=== PATIENT | female | born 1945 | race Caucasian/White ===

== ENCOUNTER 2019-02-01 04:53 | Inpatient (IN) | payer MEDICARE ==
[~2019-02-01] VITALS: Ht 157.5 cm; Wt 68.4 kg
[2019-02-01] MEDS ORDERED: ONDANSETRON HCL 4 MG/2 ML VIAL ONE ×2 (05:00→09:06)
[2019-02-01] MEDS ORDERED: MORPHINE SULFATE 4 MG/1ML SYG ONE ×2 (05:00→06:34)
[2019-02-01 05:11] LABS: BASOPHILS % (AUTO) 0.6 % (0.0-5.0); EOSINOPHILS % (AUTO) 1.4 % (0.0-8.0); HEMATOCRIT 35.5 % (36-48); LYMPHOCYTES % (AUTO) 28.3 % (21.0-51.0); MEAN CORPUSCULAR HEMOGLOBIN 34.4 pg (27.0-33.0); MEAN CORPUSCULAR HGB CONC 34.7 g/dL (32.0-36.0); MEAN CORPUSCULAR VOLUME 99.1 fL (79-99); MONOCYTES % (AUTO) 10.3 % (3.0-13.0); NEUTROPHILS % (AUTO) 59.4 % (40.0-77.0); PLATELET COUNT (AUTO) 150 K/uL (130-400); RED BLOOD CELL COUNT(AUTO) 3.58 MIL/uL (4.00-5.50); WHITE BLOOD COUNT (AUTO) 4.6 K/uL (4.8-10.8)
[2019-02-01 05:19] LABS: CREATININE 0.9 mg/dL (0.5-1.5); POTASSIUM 3.1 mmol/L (3.5-5.1)
[2019-02-01 05:24] LABS: ALBUMIN 3.1 g/dL (3.5-5.0); BILIRUBIN,TOTAL 0.4 mg/dL (0.2-1.0); TOTAL PROTEIN, SERUM 5.8 g/dL (6.0-8.3)
[2019-02-01] MEDS ORDERED: IOHEXOL 350 MG/ML 100ML INFUS..BTL IV ONE (05:48)
[2019-02-01] MEDS ORDERED: POTASSIUM CHLORIDE 20 MEQ ERTAB PO ONE (07:45)
[2019-02-01] MEDS ORDERED: DEXTROSE 5 %-0.45 % NACL 1,000 ML IV ONE (07:56)
[2019-02-01] MEDS ORDERED: MORPHINE SULFATE 2 MG/ML 1ML SYG ONE (09:06)
--- NOTE | 2019-02-01 09:38 | NUR ---
CRESENCIO Solorzano met with pt's Félix [phone] and daughter Kacie Bob [phone] while pt down for testing. Pt and in town visiting daughter for 2 weeks when pt became ill. Pt is independent of ADLS, no DME of in home care services. Plan is for pt to return to daughter's until scheduled return home next week. Addendum: 02/01/19 at 0940 by MARI WHITNEY Amended: Links added.
[2019-02-01 09:44] LABS: APPEARANCE,URINE Clear (CLEAR); BILIRUBIN,URINE Negative (NEGATIVE); COLOR,URINE Yellow (YELLOW); GLUCOSE, URINE (UA) Negative (NEGATIVE); KETONES,URINE Negative (NEGATIVE); LEUKOCYTE ESTERASE ,URINE Negative (NEGATIVE); NITRATE,URINE Negative (NEGATIVE); OCCULT BLOOD,URINE Negative (NEGATIVE); PROTEIN,URINE Negative (NEGATIVE)
[2019-02-01] MEDS: D5W-1/2 NS/20MEQ KCL 1,000 ML IV SCH ×2 (10:39→23:59)
[2019-02-01] MEDS ORDERED: MORPHINE SULFATE 2 MG/ML 1ML SYG IV PRN (10:45)
[2019-02-01 14:57] LABS: CREATINE KINASE, TOTAL 79 U/L (21-232); MYOGLOBIN 49 ng/mL (10-92); TROPONIN I < 0.04 ng/mL (0.00-0.06)
[2019-02-01] MEDS ORDERED: ACETAMINOPHEN 325 MG TAB ONE ×2 (15:38→15:41)
[2019-02-01] MEDS ORDERED: SODIUM CHLORIDE 0.9% 1000ML 1,000 ML IV SCH (19:30)
--- NOTE | 2019-02-01 19:40 | NUR ---
ASSESSMENT PATIENT TRANSFERRED FROM [place] [id number]. DX: SYNCOPE/DEHYDRATION. PATIENT DENIES PAIN AND SHORTNESS OF BREATH. ON ROOM AIR. RESPIRATIONS UNLABORED. SINUS RHYTHM HR 80'S. PATIENT COMPLAINS OF DIZZINESS AND DOUBLE VISION SINCE YESTERDAY. WILL KEEP BEDREST. SEE DOCUMENTATION FOR FULL ASSESSMENT. CALL LIGHT WITHIN REACH. INSTRUCTED PATIENT TO CALL IF ASSISTANCE IS NEEDED.
[2019-02-01 20:05] VITALS: BP 96/51
[2019-02-01] MEDS ORDERED: SODIUM CHLORIDE 0.9% 250 ML IV ONE (20:45)
--- NOTE | 2019-02-01 21:00 | NUR ---
CAROTID DOPPLERS IN PROGRESS
[2019-02-01] MEDS: ZOSYN 3.375GM+NS 50ML 50 ML IV SCH ×2 (21:15→21:31)
[2019-02-01] MEDS: FAMOTIDINE/PF 20 MG/2 ML VIAL IV SCH (21:30)
[2019-02-01] MEDS ORDERED: POTASSIUM CHLORIDE 20 MEQ ERTAB PO PRN (23:00)
[2019-02-01] MEDS ORDERED: POTASSIUM CHLORIDE 10% ELIXIR 20 MEQ/15 ML UDCUP PO PRN (23:00)
[2019-02-01] MEDS ORDERED: SODIUM CHLORIDE 0.9% 500ML 500 ML IV ONE (23:15)
[2019-02-01] MEDS ORDERED: POTASSIUM CHLORIDE 10 MEQ/TAB.SA PO ONE ×2 (23:16)
[2019-02-01 23:56] LABS: CREATINE KINASE, TOTAL 65 U/L (21-232); MYOGLOBIN 61 ng/mL (10-92); TROPONIN I < 0.04 ng/mL (0.00-0.06)
[2019-02-02] VITALS (7 sets, daily range): BP systolic 104–122; BP diastolic 51–67
[2019-02-02] MEDS: ACETAMINOPHEN 325 MG TAB PO PRN (04:03)
[2019-02-02 04:29] LABS: HEMATOCRIT 35.2 % (36-48); MEAN CORPUSCULAR HEMOGLOBIN 34.1 pg (27.0-33.0); MEAN CORPUSCULAR HGB CONC 33.6 g/dL (32.0-36.0); MEAN CORPUSCULAR VOLUME 101.5 fL (79-99); NUCLEATED RED BLOOD CELLS 0.4 % (0.0-0.19); PLATELET COUNT (AUTO) 104 K/uL (130-400); RED BLOOD CELL COUNT(AUTO) 3.47 MIL/uL (4.00-5.50); RED CELL DISTRIBUTION WIDTH 13.3 % (11.0-15.5); WHITE BLOOD COUNT (AUTO) 7.5 K/uL (4.8-10.8)
[2019-02-02 04:35] LABS: CREATININE 0.7 mg/dL (0.5-1.5); POTASSIUM 3.2 mmol/L (3.5-5.1)
[2019-02-02] MEDS ORDERED: POTASSIUM CHLORIDE 10 MEQ/TAB.SA PO ONE ×4 (05:15→06:29)
[2019-02-02] MEDS: ZOSYN 3.375GM+NS 50ML 50 ML IV SCH ×3 (05:18→21:52)
[2019-02-02] MEDS ORDERED: GABA-531 PO ×2 (07:45→07:50)
[2019-02-02] MEDS ORDERED: ASPI-1197 PO (07:45)
[2019-02-02] MEDS ORDERED: ATOR20TA65 PO (07:45)
[2019-02-02] MEDS ORDERED: POTA-79 PO (07:45)
[2019-02-02] MEDS ORDERED: LORA-997 PO (07:47)
[2019-02-02] MEDS: ONDANSETRON HCL 4 MG/2 ML VIAL IV PRN ×2 (09:38→15:12)
[2019-02-02] MEDS: FAMOTIDINE/PF 20 MG/2 ML VIAL IV SCH ×2 (09:38→21:18)
[2019-02-02] MEDS: D5W-1/2 NS/20MEQ KCL 1,000 ML IV SCH (11:34)
[2019-02-02] MEDS: POTASSIUM CHLORIDE 20MEQ/100ML 100 ML IV PRN (21:19)
[2019-02-02] MEDS: LIDOCAINE HCL-MPF 1% 2ML VIAL IVP PRN (21:19)
[2019-02-03] MEDS: D5W-1/2 NS/20MEQ KCL 1,000 ML IV SCH ×2 (01:30→15:09)
[2019-02-03 03:51] VITALS: BP 140/67
[2019-02-03 04:14] LABS: MEAN CORPUSCULAR HEMOGLOBIN 34.5 pg (27.0-33.0); MEAN CORPUSCULAR HGB CONC 34.6 g/dL (32.0-36.0); MEAN CORPUSCULAR VOLUME 99.9 fL (79-99); PLATELET COUNT (AUTO) 112 K/uL (130-400); RED BLOOD CELL COUNT(AUTO) 3.31 MIL/uL (4.00-5.50); RED CELL DISTRIBUTION WIDTH 13.2 % (11.0-15.5); WHITE BLOOD COUNT (AUTO) 7.2 K/uL (4.8-10.8)
[2019-02-03 04:24] LABS: CREATININE 0.7 mg/dL (0.5-1.5); POTASSIUM 3.7 mmol/L (3.5-5.1)
[2019-02-03] MEDS: ZOSYN 3.375GM+NS 50ML 50 ML IV SCH ×3 (05:54→22:33)
[2019-02-03 07:31] VITALS: BP 110/60
[2019-02-03] MEDS: FAMOTIDINE/PF 20 MG/2 ML VIAL IV SCH ×2 (09:12→21:01)
[2019-02-03 11:29] VITALS: BP 129/78
[2019-02-03] MEDS: GABAPENTIN 300 MG CAPSULE PO SCH ×2 (12:25→21:00)
[2019-02-03] MEDS: ONDANSETRON HCL 4 MG/2 ML VIAL IV PRN (15:09)
[2019-02-03] MEDS ORDERED: METRONIDAZOLE 500MG/100ML BAG 100 ML IV SCH (15:30)
[2019-02-03 16:07] VITALS: BP 150/78
[2019-02-03] MEDS ORDERED: PROMETHAZINE HCL 25 MG/ML 1ML AMPULE IM SCH (17:15)
[2019-02-03 19:21] VITALS: BP 133/79
[2019-02-03] MEDS: ATORVASTATIN CALCIUM 20 MG TABLET PO SCH (21:00)
[2019-02-03] MEDS: METRONIDAZOLE 500MG/100ML BAG 100 ML IV SCH (21:01)
[2019-02-03 23:32] VITALS: BP 132/76
[2019-02-04] MEDS: D5W-1/2 NS/20MEQ KCL 1,000 ML IV SCH ×2 (01:28→13:01)
[2019-02-04 03:49] VITALS: BP 142/75
[2019-02-04 04:45] LABS: BASOPHILS % (AUTO) 0.2 % (0.0-5.0); EOSINOPHILS % (AUTO) 0.8 % (0.0-8.0); LYMPHOCYTES % (AUTO) 9.8 % (21.0-51.0); MEAN CORPUSCULAR HEMOGLOBIN 34.3 pg (27.0-33.0); MEAN CORPUSCULAR HGB CONC 34.6 g/dL (32.0-36.0); MONOCYTES % (AUTO) 10.4 % (3.0-13.0); NEUTROPHILS % (AUTO) 78.8 % (40.0-77.0); NUCLEATED RED BLOOD CELLS 0.1 % (0.0-0.19); PLATELET COUNT (AUTO) 158 K/uL (130-400); RED BLOOD CELL COUNT(AUTO) 3.64 MIL/uL (4.00-5.50); RED CELL DISTRIBUTION WIDTH 13.2 % (11.0-15.5); WHITE BLOOD COUNT (AUTO) 6.2 K/uL (4.8-10.8)
[2019-02-04 04:56] LABS: CREATININE 0.6 mg/dL (0.5-1.5); POTASSIUM 3.5 mmol/L (3.5-5.1)
[2019-02-04] MEDS: POTASSIUM CHLORIDE 20MEQ/100ML 100 ML IV PRN (05:34)
[2019-02-04] MEDS: ZOSYN 3.375GM+NS 50ML 50 ML IV SCH ×3 (05:34→21:28)
[2019-02-04] MEDS: LIDOCAINE HCL-MPF 1% 2ML VIAL IVP PRN (05:34)
[2019-02-04] MEDS: GABAPENTIN 300 MG CAPSULE PO SCH ×3 (07:21→21:08)
[2019-02-04] MEDS: ASPIRIN 81MG TAB.CHEW PO SCH (07:21)
[2019-02-04] MEDS: METRONIDAZOLE 500MG/100ML BAG 100 ML IV SCH ×2 (07:25→21:07)
[2019-02-04] MEDS: FAMOTIDINE/PF 20 MG/2 ML VIAL IV SCH ×2 (07:26→21:08)
--- NOTE | 2019-02-04 08:00 | NUR ---
ASSESSMENT PT IS AAOX4 DENIES CP DENIES SOB DENIES NV AT THIS TIME. NO VISIBLE SIGNS OF DISTRESS NOTED. WILL ATTEMPT CLEAR LIQUID BREAKFAST THIS AM. PER PATIENT, SHE HAD BEEN NAUSEATED AND VOMITING DURING THE WKND, BUT STATES NO NAUSEA AT ALL NOW. CALL LIGHT WITHIN REACH.
[2019-02-04 08:25] VITALS: BP 143/89
--- NOTE | 2019-02-04 10:35 | NUR ---
UP TO CHAIR BACK TO BED, WITH DAUGHTER ASSIST.
[2019-02-04 12:39] VITALS: BP 146/71
[2019-02-04 16:03] VITALS: BP 131/74
[2019-02-04 19:03] VITALS: BP 133/77
--- NOTE | 2019-02-04 21:00 | NUR ---
PT IN BED, NO DISTRESS NOTED. ABLE TO AMBULATE. CONTINUES ON IV ABTS. PT IS ABLE TO STATE CONCERNS. AAOX3. PERRLA. LAST BM 3.25. CLEAR LUNG SOUNDS.
[2019-02-04] MEDS: ATORVASTATIN CALCIUM 20 MG TABLET PO SCH (21:08)
[2019-02-04] MEDS: ACETAMINOPHEN 325 MG TAB PO PRN (21:09)
--- NOTE | 2019-02-04 22:00 | NUR ---
HEADACHE STATED. TYLENOL PRN AVAILABLE. ADMINISTERED.
[2019-02-04 23:03] VITALS: BP 123/67
[2019-02-05 03:45] VITALS: BP 144/74
[2019-02-05 04:30] LABS: HEMATOCRIT 33.2 % (36-48); MEAN CORPUSCULAR HEMOGLOBIN 34.5 pg (27.0-33.0); MEAN CORPUSCULAR HGB CONC 34.6 g/dL (32.0-36.0); MEAN CORPUSCULAR VOLUME 99.7 fL (79-99); PLATELET COUNT (AUTO) 155 K/uL (130-400); RED BLOOD CELL COUNT(AUTO) 3.34 MIL/uL (4.00-5.50); RED CELL DISTRIBUTION WIDTH 12.9 % (11.0-15.5); WHITE BLOOD COUNT (AUTO) 4.4 K/uL (4.8-10.8)
[2019-02-05 04:40] LABS: CREATININE 0.6 mg/dL (0.5-1.5); MAGNESIUM 1.7 mg/dL (1.80-2.40); PHOSPHORUS 2.5 mg/dL (2.5-4.9); POTASSIUM 3.3 mmol/L (3.5-5.1)
[2019-02-05 05:22] LABS: B-TYPE NATRIURETIC PEPTIDE 159 pg/mL (0-100)
[2019-02-05] MEDS ORDERED: MAGNESIUM 2GM PREMIX 50ML 50 ML IV ONE (05:47)
[2019-02-05] MEDS: LIDOCAINE HCL-MPF 1% 2ML VIAL IVP PRN (05:55)
[2019-02-05] MEDS: ZOSYN 3.375GM+NS 50ML 50 ML IV SCH (05:55)
[2019-02-05] MEDS ORDERED: MAGNESIUM 2GM PREMIX 50ML 50 ML IV PRN (06:00)
[2019-02-05] MEDS: POTASSIUM CHLORIDE 20MEQ/100ML 100 ML IV PRN (06:16)
[2019-02-05] MEDS: GABAPENTIN 300 MG CAPSULE PO SCH (07:11)
[2019-02-05] MEDS: ASPIRIN 81MG TAB.CHEW PO SCH (07:11)
[2019-02-05] MEDS: METRONIDAZOLE 500MG/100ML BAG 100 ML IV SCH (07:12)
[2019-02-05] MEDS: FAMOTIDINE/PF 20 MG/2 ML VIAL IV SCH (07:12)
[2019-02-05 07:46] VITALS: BP 142/73
[2019-02-05] MEDS ORDERED: LUBIPROSTONE 24 MCG CAP PO SCH (08:00)
--- NOTE | 2019-02-05 08:00 | NUR ---
ASSESSMENT PT IS AAOX4 DENIES CP DENIES SOB DENIES NV NO COMPLAINTS RESTING IN BED. TOLERATED HEART HEALTHY BLAND DIET. FAMILY IS AT BEDSIDE.
--- NOTE | 2019-02-05 10:45 | NUR ---
AMBULATING IN HALLS WITH PHYSICAL THERAPY ASSISTING. BACK TO ROOM. FAMILY IS AT BEDSIDE.
[2019-02-05 11:55] VITALS: BP 129/72
[2019-02-05 15:17] VITALS: BP 134/72
--- NOTE | 2019-02-05 16:13 | NUR ---
DC INSTRUCTIONS GIVEN TO PATIENT AND DAUGHTER, ALL QUESTIONS ANSWERED. PIVS REMOVED CATH TIPS INTACT. TELE PACK REMOVED. ALL BELONGINGS TAKEN.
== END 2019-02-05 16:30 | disposition home or self-care (01) | DRG 316 ==
LOC: EDH 04:53 → EDHIP 07:45 → OBSVTOIN 07:45 → 2DH 19:55
PROVIDERS: ADMIT Hospitalist; ATTEND Hospitalist
DX: I95.9 Hypotension, unspecified (principal); R55 Syncope and collapse; E86.0 Dehydration; K59.00 Constipation, unspecified; E87.6 Hypokalemia; Z90.710 Acquired absence of both cervix and uterus; Z90.49 Acquired absence of other specified parts of digestive tract
CPT/HCPCS: 36415; 70450; 71045; 74177; 80048; 80053; 80339; 81003; 82550; 83605; 83690; 83735; 83874; 83880; 84100; 84484; 85025; 85027; 87040; 87324; 87804; 93005; 93306; 93880; 97039; G0378; J2270; J2405; J2543; J2550; J3475; J3480; J3490; J7030; J7040; J7042; Q9967